=== PATIENT | male | born 1995 | race Two or more races ===

== ENCOUNTER 2025-02-18 11:58 | Emergency (ER) | payer SELFPAY ==
[~2025-02-18] VITALS: Ht 172.7 cm; Wt 118.3 kg
--- NOTE | 2025-02-18 12:32 | ED.PDOC ---
HPI (NEURO) HPI Comments THIS IS A 29 YEAR-OLD MALE WHO PRESENTS TO THE ED WITH A CHIEF COMPLAINT OF GENERALIZED HEADACHE FOR X3 DAYS. PATIENT STATES THAT HE IS UNDER SOME STRESS WITH A CHILD ON THE WAY. PATIENT ADDITIONALLY REPORTS TAKING AMLODIPINE FOR HTN, BUT STOPPED TAKING MONTHS AGO DUE TO BILATERAL LEG SWELLING. PATIENT HAS NO FURTHER COMPLAINTS AT THIS TIME. PATIENT OTHERWISE DENIES FURTHER ASSOCIATED SYMPTOMS OF LOC, DIZZINESS, BLURRED VISION, FEVER, OR N/V/D. PATIENT IS ALERT, ORIENTED X 4, AND HAS STEADY GAIT. Chief Complaint: Headache Time Seen by MD: 12:09 Reviewed Notes: Nurses Notes, Medications, Allergies Information Source: Patient Mode of Arrival: Ambulatory Severity: Moderate Headache Severity: Moderate Timing: Days Duration: Since onset Prehospital treatment: None Headache Quality: Aching, Tight Headache Location: Generalized Onset: At rest, With light exertion, With heavy exertion Circumstances: Spontaneous History of: Other (HTN ) Modifying factors: Nothing Associated Signs and Symptoms: Headache Past Medical History PAST MEDICAL HISTORY: HTN Surgical History: Denies all surgeries Family History Family History: Reviewed,noncontributory to illness, No family hx of Cancer, No family hx of DM, No family hx of Heart emma, No family hx of HTN, No family hx ofKidney emma, No family hx of Liver emma, No family hx of Lung emma, No family hx of Stroke Social History Smoker: Non-Smoker Alcohol: Denies ETOH Use Drugs: Denies Drug Use Lives In: Home Constitutional: denies: chills, diaphoresis, fatigue, fever, malaise, sweats, weakness, others EENTM: denies: blurred vision, double vision, ear bleeding, ear discharge, ear drainage, ear pain, ear ringing, eye pain, eye redness, hearing loss, mouth pain, mouth swelling, nasal discharge, nose bleeding, nose congestion, nose dionna n, photophobia, tearing, throat pain, throat swelling, voice changes, others Respiratory: denies: cough, hemoptysis, orthopnea, SOB at rest, shortness of breath, SOB with excertion, stridor, wheezing, others Cardiovascular: denies: chest pain, dizzy spells, diaphoresis, Dyspnea on exertion, edema, irregular heart beat, left arm pain, lightheadedness, palpitations, PND, syncope, others Gastrointestinal: denies: abdomen distended, abdominal pain, blood streaked bowels, constipated, diarrhea, dysphagia, difficulty swallowing, hematemesis, melena, nausea, poor appetite, poor fluid intake, rectal bleeding, rectal pain, vomiting, others Genitourinary: denies: burning, dysuria, flank pain, frequency, hematuria, incontinence, penile discharge, penile sore, pain, testicle pain, testicle swelling, urgency, others Neurological: reports: headache; denies: dizziness, fainting, left sided numbn ess, left sided weakness, numbness, paresthesia, pre-existing deficit, right sided numbness, right sided weakness, seizure, speech problems, tingling, tremors, weakness, others Musculoskeletal: denies: back pain, gout, joint pain, joint swelling, muscle pain, muscle stiffness, neck pain, others Integumetry: denies: bruises, change in color, change in hair/nails, dryness, laceration, lesions, lumps, rash, wounds, others Allergic/Immunocompromised: denies: Difficulty Healing, Frequent Infections, Hives, Itching, others Hematologic/Lymphatic: denies: anemia, blood clots, easy bleeding, easy bruising, swollen glands, others Endocrine: denies: excessive hunger, excessive sweating, excessive thirst, excessive urination, flushing, intolerance to cold, intolerance to heat, unexplained weight gain, unexplained weight loss, others Psychiatric: denies: anxiety, bipolar disorder, depression, hopeless, panic disorder, schizophrenia, sleepless, suicidal, others All Other Systems: Reviewed and Negative Physical Exam General Appearance: No Apparent Distress, Obese HEENT: Normal ENT Inspection, PERRL/EOMI, Pharynx Normal, TMs Normal Neck: Full Range of Motion, Non-Tender, Normal, Normal Inspection Respiratory: Chest Non-Tender, Lungs Clear, No Accessory Muscle Use, No Respiratory Distress, Normal Breath Sounds Cardiovascular: No Edema, No JVD, No Murmur, No Gallop, Normal Peripheral Pulses, Regular Rate/Rhythm Breast Exam: Deferred Gastrointestinal: No Organomegaly, Non Tender, No Pulsatile Mass, Normal Bowel Sounds, Soft Genitalia: Deferred Pelvic: Deferred Rectal: Deferred Extremities: No calf tenderness, Normal capillary refill, Normal inspection, Normal range of motion, Non-tender, No pedal edema Musculoskeletal : Apperance: Normal Neurologic: Alert, director staffing II-XII nml as Tested, Headache, No Motor Deficits, Normal Affect, Normal Mood, No Sensory Deficits Cerebellar Function: Normal Reflexes: Normal Skin: Dry, Normal Color, Warm Peripheral Pulses: 2+ carotid (R), 2+ carotid (L) Lymphatic: No Adenopathy Was a procedure done? Was a procedure done?: No Differential Diagnosis (SZ) Headache: Cluster, Migraine, Closed Head Injury, Intracerebral Hemorrhage, Sinusitis X-Ray, Labs, Meds, VS Vital Signs Date Time Temp Pulse Resp B/P (MAP) Pulse Ox O2 Delivery O2 Flow Rate FiO2 02/18/25 12:06 87 02/18/25 12:00 97.4 84 18 147/99 99 97.4 [place] [id number] Ph: [phone] DIAGNOSTIC IMAGING Diagnostic Imaging Report : [id number] Signed PATIENT: KAT GOMEZ ACCT: [id number] UNIT: [id number] : 1995 LOC: ER ROOM / BED: / AGE / SEX: 29 / M ADM STATUS: REG ER SERVICE [id number] ORDERING PHYSICIAN: JORGE LUIS LR PROCEDURE(s): HWOCT - HEAD WITHOUT CONTRAST REASON: HEADACHE ORDER NUMBER(s): [id number], ACCESSION NUMBER(s): [id number] CT HEAD WITHOUT CONTRAST Indication: HEADACHE EXAM DATE: 02/18/2025 12:14 PM COMPARISON: None TECHNIQUE: CT of the head without intravenous contrast. RADIATION DOSE: CTDIvol: 52 mGy, DLP: 864 mGy*cm FINDINGS: There is no intracranial hemorrhage. There is no extra-axial fluid, mass, mass effect or midline shift. The ventricles are midline and normal in size. Basilar cisterns are patent. Stallings-white differentiation is maintained. The paranasal sinuses and mastoids are well-pneumatized. Imaged portion of the orbits are unremarkable. IMPRESSION: No intracranial hemorrhage or mass effect. X-Ray, Labs, Meds, VS Comment EXTERNAL MEDICAL RECORDS REVIEWED: [NONE] INDEPENDENT HISTORIANS: [NONE] SOCIAL DETERMINANTS OF HEALTH: [NONE] LABS ORDERED: NONE REVIEWED AND INTERPRETED RESULTS: NONE IMAGING ORDERED: HEAD CT WITHOUT CONTRAST TREATMENTS ORDERED: PT DECLINED PAIN MEDICATION ONLY RX. PROCEDURES PERFORMED: NONE CRITICAL CARE TIME: NONE I HAVE DISCUSSED THE PATIENT WITH THE ATTENDING PHYSICIAN, DR. SUTTON, AND HE AGREES WITH THE PATIENT'S PLAN OF CARE AND DISPOSITION. BASED ON HISTORY OF PRESENT ILLNESS, AND PHYSICAL EXAM, PATIENT WILL BE DISCH ARGED HOME. DISCUSSED PLAN FOR DISCHARGE HOME WITH RX IBUPROFEN 800MG. MEDICATION WARNINGS GIVEN. SHARED DECISION MAKING: DISCUSSED WITH PATIENT THAT THEIR WORKUP WAS NORMAL. PATIENT INSTRUCTED TO FOLLOW UP WITH PRIMARY CARE PROVIDER IN 1-2 DAYS FOR RE-E VALUATION OF SYMPTOMS. PATIENT VERBALIZES UNDERSTANDING TO RETURN TO ED FOR NEW OR WORSENING SYMPTOMS OR IF FOLLOW UP WITH PCP CANNOT BE OBTAINED. PATIENT FEELS COMFORTABLE GOING HOME AT THIS TIME. ALL QUESTIONS ADDRESSED AT TIME OF DISCHARGE. Images Reviewed?: Images reviewed and evaluated by me Time of 1ST Reevaluation: 13:20 Reevaluation 1ST: Improved Patient Education/Counseling: Diagnosis, Treatment, Need For Follow Up Family Education/Counseling: Diagnosis, Treatment, Need For Follow Up Medical Screening: No EMC Exist At This Time Departure 1 Departure Time of Disposition: 13:20 Impression: Primary Impression: Tension headache Disposition: 01 HOME / SELF CARE / HOMELESS Condition: Stable Additional Instructions: FOLLOW-UP WITH PCP IN 1 TO 2 DAYS. TAKE MEDICATIONS PRESCRIBED. RETURN TO ED FOR ANY NEW OR WORSENING SYMPTOMS. e-Prescriptions Ibuprofen (Ibuprofen) 800 Mg Tab 1 TAB PO TID, #30 TAB Prov: JORGE LUIS LR 02/18/25 Discharged With: Self, Relative Critical Care Note Critical Care Time?: No Stability Stability form required: No Heart Score Heart Score: Heart Score Response (Comments) Value History N/A 0 EKG N/A 0 Age N/A 0 Risk Factors N/A 0 Troponin N/A 0 Total 0 I personally scribed for JORGE LUIS LR ([email or web address]) on 02/18/25 at 12:32. Electronically submitted by Nicole Cordon ([employer]). I personally scribed for JORGE LUIS LR ([email or web address]) on 02/18/25 at 13:02. Electronically submitted by Nicole Cordon ([employer]). I personally scribed for JORGE LUIS LR ([email or web address]) on 02/18/25 at 13:06. Electronically submitted by Nicole Cordon ([employer]). JORGE LUIS LR Feb 18, 2025 12:32
--- NOTE | 2025-02-18 12:54 | DVH ---
CT HEAD WITHOUT CONTRAST Indication: HEADACHE EXAM DATE: 02/18/2025 12:14 PM COMPARISON: None TECHNIQUE: CT of the head without intravenous contrast. RADIATION DOSE: CTDIvol: 52 mGy, DLP: 864 mGy*cm FINDINGS: There is no intracranial hemorrhage. There is no extra-axial fluid, mass, mass effect or midline shif t. The ventricles are midline and normal in size. Basilar cisterns are patent. Stallings-white differentia tion is maintained. The paranasal sinuses and mastoids are well-pneumatized. Imaged portion of the orbits are unremarkabl e. IMPRESSION: No intracranial hemorrhage or mass effect.
[2025-02-18] MEDS ORDERED: IBUP-1456 PO (13:08)
[2025-02-18 13:13] VITALS: BP 147/99; PULSE 84; RESP 18; TEMP 97.4; O2SAT 99
--- NOTE | 2025-02-19 11:13 | ECG ---
[facility] Test Date: 2025-02-18 Test Time: 12:06:45 Pat Name: KAT GOMEZ Department: ED Room: Gender: M [employer]: [employer] : 1995 Requested By: JORGE LUIS LR Order Number: [id number] Reading MD: Measurements Intervals [place] Rate: 87 P: 83 RI: 152 QRS: 85 QRSD: 87 T: -50 QT: 361 QTc: 435 Interpretive Statements Sinus rhythm Nonspecific repol abnormality, diffuse leads Baseline wander in lead(s) V4 Please click the below link to view image of tracing.
== END 2025-02-18 13:16 | disposition home or self-care (01) ==
LOC: ER 11:58
DX: G44.209 Tension-type headache, unspecified, not intractable (principal); M79.89 Other specified soft tissue disorders; I10 Essential (primary) hypertension
CPT/HCPCS: 70450; 93005